=== PATIENT | female | born 1935 | race Caucasian/White ===

== ENCOUNTER 2018-05-10 08:58 | Emergency (ER) | payer MEDICARE ==
[~2018-05-10] VITALS: Ht 165.1 cm; Wt 58.0 kg
[~2018-05-10 08:58] MED LIST: ASCO-139 PO; ATOR40TA PO; CALCIUM PO; CHOL2000 PO; LOSA50TA3 PO; MAGN400T6 PO; MECO5000 PO; NIFE30TA8 PO; OMEP40CA37 PO; VITA2500 PO
[2018-05-10 09:10] VITALS: BP 130/92
[2018-05-10] MEDS: morphine 4 MG/ML inj SYRINge IV ONE ×2 (09:14→09:16)
[2018-05-10] MEDS ORDERED: TRAM50TA2 PO (09:50)
== END 2018-05-10 11:05 | disposition home or self-care (01) ==
LOC: ER 08:58
DX: S20.212A Contusion of left front wall of thorax, initial encounter (principal); E78.00 Pure hypercholesterolemia, unspecified; I10 Essential (primary) hypertension; G89.29 Other chronic pain; G57.00 Lesion of sciatic nerve, unspecified lower limb; Z88.2 Allergy status to sulfonamides; Z79.899 Other long term (current) drug therapy; W19.XXXA Unspecified fall, initial encounter; Y93.89 Activity, other specified; Y92.099 Unspecified place in other non-institutional residence as the place of occurrence of the external cause; Y99.9 Unspecified external cause status
CPT/HCPCS: 71100; 99284; J2270

== ENCOUNTER 2019-06-28 10:25 | Emergency (ER) | payer MEDICARE ==
[~2019-06-28] VITALS: Ht 165.1 cm; Wt 50.5 kg
[~2019-06-28 10:25] MED LIST changes: +AMLO5TAB16 PO; -ASCO-139 PO; -ATOR40TA PO; -CHOL2000 PO; +EZET10TA48 PO; -LOSA50TA3 PO; +MAGN400T28 PO; -MAGN400T6 PO; -MECO5000 PO; -NIFE30TA8 PO; -OMEP40CA37 PO; -VITA2500 PO
[2019-06-28 12:50] LABS: COLOR,URINE YELLOW (Yellow); GLUCOSE, URINE NEGATIVE (Neg); KETONES,URINE NEGATIVE (Neg); LEUKOCYTE ESTERASE ,URINE TRACE (Neg); NITRITES, URINE NEGATIVE (Neg); OCCULT BLOOD,URINE TRACE-LYSED (Neg); PROTEIN,URINE NEGATIVE (Neg); UROBILINOGEN,URINE 0.2 E.U/dL (0.2-1.0)
[2019-06-28 12:57] LABS: CLARITY,URINE SLIGHTLY CLOUDY (Clear); UA COLLECTION TYPE CLN CATCH MIDSTREAM
[2019-06-28 13:07] LABS: BACTERIA,URINE 1+ /HPF (Neg); MUCUS STRANDS MODERATE /LPF (Neg); SQUAMOUS EPITHELIAL CELL,UR MODERATE /LPF (FEW); TRANSITIONAL EPI CELLS,URINE FEW /HPF; WBC,URINE 0-4 /HPF (0-4)
--- NOTE | 2019-06-28 13:16 | NUR ---
PA IN ROOM: UA NEGATIVE PATIENT EDUCATED TO RESUME HER VAGINAL ESTROGEN CREAM AND MOISTURIZER
[2019-06-28 13:46] VITALS: BP 141/62
== END 2019-06-28 13:49 | disposition home or self-care (01) ==
LOC: ER 10:25
DX: N95.2 Postmenopausal atrophic vaginitis (principal); E78.00 Pure hypercholesterolemia, unspecified; I10 Essential (primary) hypertension; G89.29 Other chronic pain; Z98.49 Cataract extraction status, unspecified eye; Z88.2 Allergy status to sulfonamides; Z79.899 Other long term (current) drug therapy
CPT/HCPCS: 81001; 87088; 99283

== ENCOUNTER 2020-07-28 11:15 | Emergency (ER) | payer MEDICARE ==
[~2020-07-28] VITALS: Ht 165.1 cm; Wt 53.7 kg
[2020-07-28] MEDS ORDERED: LORazepam 0.5 MG tablet PO STA (12:21)
--- NOTE | 2020-07-28 12:37 | NUR ---
back from CT. pt states her daughter will take her home if she is discharged.
[2020-07-28 12:58] VITALS: BP 171/98
[2020-07-28 12:59] LABS: BASOPHILS # (AUTO) 0.1 X10'3 (0-0.2); BASOPHILS % (AUTO) 0.7 % (0-1); EOSINOPHILS # (AUTO) 0.1 X10'3 (0-0.9); EOSINOPHILS % (AUTO) 1.9 % (0-6); HEMATOCRIT 43.8 % (35.0-45.0); HEMOGLOBIN 14.8 g/dl (12.0-16.0); LYMPHOCYTES # (AUTO) 2.1 X10'3 (1.1-4.8); LYMPHOCYTES % (AUTO) 29.3 % (21-51); MEAN CORPUSCULAR HEMOGLOBIN 30.2 PG (27.0-31.0); MEAN CORPUSCULAR HGB CONC 33.7 g/dL (33.0-36.5); MEAN CORPUSCULAR VOLUME 89.5 FL (78-98); MEAN PLATELET VOLUME 7.1 FL (7.4-10.4); MONOCYTES # (AUTO) 0.6 X10'3 (0-0.9); MONOCYTES % (AUTO) 7.8 % (2-12); NEUTROPHILS # (AUTO) 4.4 X10'3 (1.8-7.7); NEUTROPHILS % (AUTO) 60.3 % (42-75); PLATELET COUNT 274 X10'3 (140-440); RED BLOOD COUNT 4.89 X10'6 (4.20-5.60); RED CELL DISTRIBUTION WIDTH 13.2 % (11.5-14.5); WHITE BLOOD COUNT 7.3 X10'3 (4.5-11.0)
[2020-07-28 13:07] LABS: ALANINE AMINOTRANSFERASE 36 U/L (12-78); ALBUMIN 4.6 G/DL (3.4-5.0); ALBUMIN/GLOBULIN RATIO 1.4 (1.1-1.5); ALKALINE PHOSPHATASE 56 IU/L (46-116); ANION GAP 8 (8-16); ASPARTATE AMINO TRANSFERASE 28 U/L (10-37); BILIRUBIN,TOTAL 0.4 MG/DL (0.1-1.0); BLOOD UREA NITROGEN 12 MG/DL (7-18); BUN/CREATININE RATIO 18.5 (6.6-38.0); CALCIUM 9.8 MG/DL (8.5-10.1); CHLORIDE 105 MMOL/L (99-107); CREATININE 0.65 MG/DL (0.40-0.90); GLUCOSE 96 MG/DL (70-104); POTASSIUM 3.6 MMOL/L (3.5-5.1); SODIUM 145 MMOL/L (135-145); TOTAL CARBON DIOXIDE 32.5 MMOL/L (24-32); eGFR 87 ML/MIN
== END 2020-07-28 13:38 | disposition home or self-care (01) ==
LOC: ER 11:17
DX: H53.9 Unspecified visual disturbance (principal); E78.00 Pure hypercholesterolemia, unspecified; I10 Essential (primary) hypertension; G89.29 Other chronic pain; Z88.2 Allergy status to sulfonamides; Z79.899 Other long term (current) drug therapy
CPT/HCPCS: 36415; 70450; 80053; 85025; 99284

== ENCOUNTER 2025-05-09 18:45 | Emergency (ER) | payer MEDICARE ==
[~2025-05-09] VITALS: Ht 165.1 cm; Wt 53.7 kg
[~2025-05-09 18:45] MED LIST changes: -EZET10TA48 PO; +EZET10TA80 PO; -MAGN400T28 PO; +MAGN400T56 PO
[2025-05-09 18:49] VITALS: BP 156/103; PULSE 82; RESP 15; TEMP 96.8; O2SAT 98
[2025-05-09 19:32] LABS: LEUKOCYTE ESTERASE ,URINE NEGATIVE (Neg); NITRITES, URINE NEGATIVE (Neg); OCCULT BLOOD,URINE NEGATIVE (Neg)
[2025-05-09 19:35] LABS: UA COLLECTION TYPE CLN CATCH MIDSTREAM
[2025-05-09 19:41] LABS: AMORPHOUS PHOSPHATES 1+; HYALINE CASTS 0-3 /LPF (NEGATIVE); SQUAMOUS EPITHELIAL CELL,UR NONE SEEN /LPF (FEW)
[2025-05-09 19:48] LABS: MEAN PLATELET VOLUME 7.4 FL (7.4-10.4); RED CELL DISTRIBUTION WIDTH 13.7 % (11.5-14.5)
[2025-05-09 20:04] LABS: CREATININE 0.75 MG/DL (0.40-0.90); TOTAL CARBON DIOXIDE 31.2 MMOL/L (24-32); eCRCL 45 ML/MIN; eGFR 73 ML/MIN
--- NOTE | 2025-05-09 21:13 | Physician Documentation ---
History of Present Illness Chief Complaint: Abdominal Pain Stated Complaint: ABD PAIN Primary Medical Doctor: Yeison AGUILAR HPI Patient is a an 89-year-old female that presents to the emergency department via ambulance. Per report the patient has had week and a half without a bowel move ment. Patient has a previous history of bowel obstruction. Patient reports that she has taken stool softeners and a suppository today without any improvement in her constipation. Patient reports her belly is more distended than normal and feels more firm. Patient denies fever chills nausea vomiting diarrhea at this time. Medication Reconciliation Allergies: Coded Allergies: Sulfa (Sulfonamide Antibiotics) (Verified Allergy, Unknown, 05/09/25) Scheduled Amlodipine Besylate (Amlodipine Besylate), 5 MG PO DAILY, (Reported) Ezetimibe (Ezetimibe), 10 MG PO DAILY, (Reported) Magnesium Oxide (Magnesium Oxide), 1 TABLET PO DAILY, (Reported) [calcium D3], 1 TAB PO DAILY, (Reported) Past Medical History Past Medical History: Cataracts, High Cholesterol, Hypertension, Chronic Pain Past Surgical History: other Other Past Surgical History: Pelvic mesh Patient History: Patient reports no known family medical history. Alcohol Use: None Drug Use: none Lives In: Home Occupation: retired Physical Exam Vital Signs: Temperature: 96.8, Source: Temporal, Heart Rate: 82, Respiratory Rate: 15, BP: 156/103, Pulse Oximetry: 98, Weight: 53.700 Progress Results/Orders Results/Orders Vital Signs 05/09/25 18:49 Temp 96.8 Pulse 82 Resp 15 B/P (MAP) 156/103 Pulse Ox 98 Laboratory Tests Test 05/09/25 19:13 05/09/25 19:34 Urine Specimen Description Cln catch midstream Urine Color Yellow Urine Clarity Slightly cloudy Urine pH 6.5 Urine Specific [place] 1.020 Urine Protein 30 H Urine Glucose (UA) Negative Urine Ketones Trace H Urine Occult Blood Negative Urine Nitrite Negative Urine Bilirubin Small Urine Urobilinogen 1.0 Urine Leukocyte Esterase Negative Urine RBC 0-2 Urine WBC 0-4 Urine Squamous Epithelial Cells None seen Urine Amorphous Phosphates 1+ Urine Bacteria Few Urine Hyaline Casts 0-3 Urine Culture Indicated Not ind Volume Urine Centrifuged 10 ml Urine Comment White Blood Count 14.2 H Red Blood Count 4.47 Hemoglobin 13.8 Hematocrit 40.4 Mean Corpuscular Volume 90.4 Mean Corpuscular Hemoglobin 30.9 Mean Corpuscular Hemoglobin Concent 34.2 Red Cell Distribution Width 13.7 Platelet Count 241 Mean Platelet Volume 7.4 Neutrophils (%) (Auto) 86.0 H Lymphocytes (%) (Auto) 7.3 L Monocytes (%) (Auto) 5.8 Eosinophils (%) (Auto) 0.6 Basophils (%) (Auto) 0.3 Neutrophils # (Auto) 12.2 H Lymphocytes # (Auto) 1.0 L Monocytes # (Auto) 0.8 Eosinophils # (Auto) 0.1 Basophils # (Auto) 0.0 CBC Comment Sodium Level 144 Potassium Level 3.7 Chloride Level 103 Carbon Dioxide Level 31.2 Anion Gap 10 Blood Urea Nitrogen 27 H Creatinine 0.75 Estimated GFR/1.73 m2 73 BUN/Creatinine Ratio 36.0 H Glucose Level 136 H Calcium Level 9.1 Total Bilirubin 0.7 Aspartate Amino Transf (AST/SGOT) 23 Alanine Aminotransferase (ALT/SGPT) 24 Alkaline Phosphatase 66 Total Protein 7.2 Albumin 4.2 Globulin 3.0 Albumin/Globulin Ratio 1.4 Lipase 41 Chemistry Comments Departure Referrals: NO PRIMARY CARE PROVIDER (PCP) JOSE DE JESUS JIMENEZ May 09, 2025 21:13
== END 2025-05-09 21:23 | disposition left against medical advice (07) ==
LOC: ER 18:45
DX: R10.84 Generalized abdominal pain (principal); E78.00 Pure hypercholesterolemia, unspecified; I10 Essential (primary) hypertension; Z88.2 Allergy status to sulfonamides
CPT/HCPCS: 36415; 80053; 81001; 83690; 85025; 99283